=== PATIENT | female | born 1960 | race Caucasian/White ===

== ENCOUNTER 2018-03-07 18:12 | Emergency (ER) | payer OTHER ==
[2018-03-07 18:42] VITALS: BP 110/75
--- NOTE | 2018-03-07 19:52 | UC ---
Knee Pain HPI - HPI Summary HPI Summary: patient fell onto a concrete floor, landing on the front of her knee, woke up next morning with increased swelling and pain. cant bear weight - History of Current Complaint Chief Complaint: UCTrauma Stated Complaint: RIGHT KNEE PAIN S/P FALL Time Seen by Provider: 03/07/18 18:42 Hx Obtained From: Patient Hx Last Menstrual Period: 2 yrs ?: No Onset/Duration: Sudden Onset Severity Initially: Moderate Severity Currently: Moderate Pain Intensity: 7 Character: Aching, Throbbing, Stiffness Aggravating Factor(s): Movement, Weight Bearing Alleviating Factor(s): Rest Associated Signs And Symptoms: Positive: Swelling Able to Bear Weight: No - Allergies/Home Medications Allergies/Adverse Reactions: Allergies Allergy/AdvReac Type Severity Reaction Status Date / Time No Known Allergies Allergy Verified 03/07/18 18:41 PMH/Surg Hx/FS Hx/Imm Hx Previously Healthy: Yes - Surgical History Surgical History: Yes Surgery Procedure, Year, and Place: left knee 2013, R hip replacement - Family History Known Family History: Positive: Hypertension - Social History Alcohol Use: Weekly Alcohol Amount: 12 Substance Use Type: None Smoking Status (MU): Former Smoker Review of Systems Constitutional: Negative Skin: Negative Eyes: Negative ENT: Negative Respiratory: Negative Cardiovascular: Negative Gastrointestinal: Negative Genitourinary: Negative Motor: Negative Neurovascular: Negative Musculoskeletal: Arthralgia, Decreased ROM, Edema, Myalgia Neurological: Negative Psychological: Negative Is Patient Immunocompromised?: No All Other Systems Reviewed And Are Negative: Yes Physical Exam Triage Information Reviewed: Yes Appearance: Well-Appearing, Well-Nourished, Pain Distress Vital Signs: Initial Vital Signs Temp 97.6 F 03/07/18 18:32 Pulse 82 03/07/18 18:32 Resp 16 03/07/18 18:32 BP 110/75 03/07/18 18:32 Pulse Ox 100 03/07/18 18:32 Vital Signs Reviewed: Yes Eye Exam: Normal ENT Exam: Normal ENT: Positive: Pharynx normal, TMs normal Dental Exam: Normal Neck exam: Normal Respiratory Exam: Normal Respiratory: Positive: Chest non-tender, Lungs clear, Normal breath sounds Cardiovascular Exam: Normal Cardiovascular: Positive: RRR, No Murmur, Pulses Normal Abdominal Exam: Normal Abdomen Description: Positive: Nontender, No Organomegaly, Soft Bowel Sounds: Positive: Present Musculoskeletal: Positive: Strength Limited @ - non weight bearing, ROM Limited @ - due to swelling and pain, Edema @ - around sumaya right knee Neurological Exam: Normal Psychological Exam: Normal Skin Exam: Normal Diagnostics - Radiology No standard instances Radiology Interpretation Completed By: ED Physician - final read not completed at discharge Knee Pain Course/Dx - Course Course Of Treatment: hx obtained, exam performed ,meds reviewed, xray obtained, no obvious disloaction or fracture noted, lor wrap and immobilizer applied. - Differential Dx/Diagnosis Differential Diagnosis/HQI/PQRI: Bursitis, Contusion, DVT, Fracture (Closed), Internal Derangement Of Knee, Sprain, Strain Provider Diagnoses: knee swelling. OA of right knee Discharge - Sign-Out/Discharge Documenting (check all that apply): Patient Departure All imaging exams completed and their final reports reviewed: Yes - Discharge Plan Condition: Stable Disposition: HOME Patient Education Materials: Swollen Knee Joint (ED) Referrals: Reza Kumar MD [Primary Care Provider] - Ki Corley MD [Medical Doctor] - Additional Instructions: 1. Use the lor wrap for swelling control 2. IMmobilizer wear to keep the leg straight 3. Ice for the next 24 hours and then you can alternate heat and ice 4. Ibuprofen or tylenol for pain 5. Follow up with orthopedics on friday i have given the name of an ortho incase you cannot get into your own doctor. - Billing Disposition and Condition Condition: STABLE Disposition: Home
[2018-03-07] MEDS ORDERED: DOXYcycline CAP(*) 100 MG PO ONE (20:03)
--- NOTE | 2018-03-08 08:20 | RAD ---
Indication: Right knee pain. 4 views of the right knee demonstrates no definite fracture. There is a joint effusion noted. There is diffuse osteopenia noted. There are degenerative changes of the patellofemoral joint. IMPRESSION: No definite fracture is noted although there is a suprapatellar effusion noted. Degenerative changes of the patellofemoral joint is noted. There is diffuse osteopenia. R2
== END 2018-03-07 20:03 | disposition home or self-care (01) ==
LOC: UCCORT 18:12
DX: M25.461 Effusion, right knee (principal); M17.11 Unilateral primary osteoarthritis, right knee
CPT/HCPCS: 99213; G0463